=== PATIENT | female | born 1985 | race Two or more races ===

== ENCOUNTER 2017-03-09 13:30 | Emergency (ER) | payer OTHER ==
[2017-03-09 13:35] VITALS: BP 122/82; PULSE 105; TEMP 97.4; BMI 31.6
[2017-03-09] MEDS ORDERED: SODIUM CHLORIDE 1,000 ML IV STA (14:53)
[2017-03-09] MEDS ORDERED: ONDANSETRON 4 MG/2 ML VIAL IVPUSH ONE (14:53)
[2017-03-09] MEDS ORDERED: KETOROLAC TROMETHAMINE 30 MG/1 ML VIAL IVPUSH ONE (14:53)
[2017-03-09 14:57] LABS: URINE APPEARANCE SLCLOUDY; URINE BILIRUBIN NEGATIVE (NEGATIVE); URINE BLOOD NEGATIVE (NEGATIVE); URINE COLOR LTYELLOW; URINE GLUCOSE (UA) NEGATIVE (NEGATIVE); URINE KETONE NEGATIVE (NEGATIVE); URINE NITRITE NEGATIVE (NEGATIVE); URINE PROTEIN NEGATIVE (NEGATIVE); URINE UROBILINOGEN NEGATIVE E.U./dl (0.2-1.0)
[2017-03-09 14:58] LABS: URINE LEUK ESTERASE 3+ (NEGATIVE)
[2017-03-09] MEDS ORDERED: ONDANSETRON 4 MG/2 ML VIAL ONE (15:13)
[2017-03-09] MEDS ORDERED: KETOROLAC TROMETHAMINE 30 MG/1 ML VIAL ONE (15:13)
[2017-03-09 15:27] LABS: BASOPHIL 0.6 % (0-2.0); EOSINOPHIL 1.5 % (0-4.5); MCH 25.9 pg (25.7-33.7); MCHC 32.7 g/dl (32.0-36.0); MEAN CELL VOLUME 79.3 fl (80-96); MEAN PLT VOLUME 7.5 fl (7.5-11.1); NEUTROPHILS 58.1 % (42.8-82.8); PLATELET COUNT 386 K/MM3 (134-434); RDW 15.2 % (11.6-15.6); WHITE BLOOD COUNT 10.7 K/mm3 (4.0-10.0)
[2017-03-09 15:49] LABS: URINE RBC <1 /hpf (0-3); URINE WBC 10 /hpf (3-5)
[2017-03-09 15:53] LABS: ALBUMIN 3.3 g/dl (3.4-5.0); ANION GAP 8 (8-16); BILIRUBIN,TOTAL 0.1 mg/dL (0.2-1.0); CALCIUM 9.1 mg/dL (8.5-10.1); CO2 25 mmol/L (21-32); CREATININE 0.7 mg/dL (0.55-1.02); GLUCOSE,RANDOM 85 mg/dL (74-106); SGPT/ALT 27 U/L (12-78); TOT PROT 6.9 g/dl (6.4-8.2)
[2017-03-09 15:54] LABS: ALK PHOS 97 U/L (45-117)
[2017-03-09 15:58] LABS: MAGNESIUM 1.9 mg/dL (1.8-2.4); SGOT/AST 25 U/L (15-37)
--- NOTE | 2017-03-09 16:15 | PDOC ---
History of Present Illness - General Chief Complaint: Pain Stated Complaint: FLANK PAIN Time Seen by Provider: 03/09/17 14:28 History Source: Patient Exam Limitations: No Limitations - History of Present Illness Travel History: No Initial Comments: 03/09/17 15:13 31-year-old female with no past medical history presents to the ED with complaints of nausea with vomiting and intermittent diarrhea for the past 3 days associated with urinary frequency along with suprapubic pressure radiating to her right flank area. Patient denies history of kidney stones, kidney infection, gallbladder disease, recent travel, or recent change in diet. Patient denies drug or alcohol usage. Timing/Duration: reports: changing over time Quality: reports: mild, cramping Abdominal Pain Onset Location: reports: suprapubic Pain Radiation: reports: flank (rt) Activities at Onset: reports: none Aggravating Factors: improves with: None Alleviating Factors: improves with: None Past History - Past Medical History Allergies/Adverse Reactions: Allergies Allergy/AdvReac Type Severity Reaction Status Date / Time No Known Allergies Allergy Verified 03/09/17 13:32 Home Medications: Ambulatory Orders Ranitidine HCl [Zantac 75] 75 mg PO DAILY #14 tablet 06/07/15 Other medical history: NONE - Reproductive History LMP Normal: Yes Is Patient Now?: No - Psycho/Social/Smoking Cessation Hx Anxiety: No Suicidal Ideation: No Smoking History: Never smoked Have you smoked in the past 12 months: No Number of Cigarettes Smoked Daily: 2 Information on smoking cessation initiated: No 'Breaking Loose' booklet given: 03/08/17 Hx Alcohol Use: No Drug/Substance Use Hx: No Substance Use Type: None Patient Lives Alone: No Review of Systems - Review of Systems Able to Perform ROS?: Yes Constitutional: No: Symptoms Reported HEENTM: No: Symptoms Reported Respiratory: No: Symptoms reported Cardiac (ROS): No: Symptoms Reported ABD/GI: Yes: Diarrhea, Nausea, Poor Appetite, Poor Fluid Intake, Vomiting, Abdominal cramping : Yes: Dysuria, Frequency, Flank Pain Musculoskeletal: No: Symptoms Reported Integumentary: No: Symptoms Reported Neurological: No: Symptoms reported *Physical Exam - Vital Signs Last Vital Signs Temp Pulse Resp BP Pulse Ox 97.4 F L 105 H 18 122/82 100 03/09/17 13:32 03/09/17 13:32 03/09/17 13:32 03/09/17 13:32 03/09/17 13:32 - Physical Exam General Appearance: Yes: Nourished, Appropriately Dressed. No: Apparent Distress HEENT: negative: Pale Conjunctivae Neck: positive: Supple Respiratory/Chest: positive: Lungs Clear, Normal Breath Sounds. negative: Respiratory Distress, Accessory Muscle Use Cardiovascular: positive: Regular Rhythm, Tachycardia. negative: Murmur Gastrointestinal/Abdominal: positive: Soft, Tenderness (suprapubic, right suprapbic , and rt flank) Musculoskeletal: positive: CVA Tenderness (R) (mild) Extremity: positive: Normal Capillary Refill. negative: Pedal Edema Integumentary: positive: Normal Color, Warm, Moist Neurologic: positive: Motor Strength 5/5 (ambulatory) ED Treatment Course - LABORATORY CBC & Chemistry Diagram: 03/09/17 15:15 03/09/17 15:15 - ADDITIONAL ORDERS Additional order review: Laboratory Results 03/09/17 03/09/17 15:15 14:42 Sodium 141 Potassium 4.3 Chloride 108 H Carbon Dioxide 25 Anion Gap 8 BUN 12 D Creatinine 0.7 Creat Clearance w eGFR > 60 Random Glucose 85 Calcium 9.1 Magnesium 1.9 Total Bilirubin 0.1 L D AST 25 D ALT 27 Alkaline Phosphatase 97 Total Protein 6.9 Albumin 3.3 L Lipase 157 Urine Color Ltyellow Urine Appearance Slcloudy Urine pH 6.0 Urine Protein Negative Urine Glucose (UA) Negative Urine Ketones Negative Urine Blood Negative Urine Nitrite Negative Urine Bilirubin Negative Urine Urobilinogen Negative Ur Leukocyte Esterase 3+ H D Urine RBC <1 Urine WBC 10 Ur Epithelial Cells Moderate Urine HCG, Qual Negative 03/09/17 15:15 RBC 4.86 MCV 79.3 L MCHC 32.7 RDW 15.2 MPV 7.5 Neutrophils % 58.1 Lymphocytes % 33.8 Monocytes % 6.0 Eosinophils % 1.5 Basophils % 0.6 - Medications Given in the ED: ED Medications Discontinued Medications Generic Name Dose Route Start Last Admin Trade Name Freq PRN Reason Stop Dose Admin Ketorolac Tromethamine 30 mg 03/09/17 14:53 03/09/17 15:16 Toradol Injection - IVPUSH 03/09/17 14:54 30 mg ONCE ONE Administration Ondansetron HCl 4 mg 03/09/17 14:53 03/09/17 15:16 Zofran Injection IVPUSH 03/09/17 14:54 4 mg ONCE ONE Administration Medical Decision Making - Medical Decision Making 03/09/17 15:16 Patient here with complaints of nausea vomiting diarrhea suprapubic cramping associated with right flank pain and urinary frequency. Patient exam had suprapubic right flank and mild right CVA tenderness. Patient concerning for pyelonephritis versus renal colic patient ordered for labs including lipase, urinalysis urine , IV Toradol, Zofran, IV fluids and will reassess shortly 03/09/17 16:19 Laboratory Tests 03/09/17 03/09/17 03/09/17 14:42 15:15 15:15 WBC 10.7 H Hgb 12.6 Hct 38.6 Plt Count 386 Neutrophils % 58.1 Sodium 141 Potassium 4.3 Chloride 108 H Carbon Dioxide 25 Anion Gap 8 BUN 12 D Creatinine 0.7 Creat Clearance w eGFR > 60 Random Glucose 85 Calcium 9.1 Magnesium 1.9 Total Bilirubin 0.1 L D AST 25 D ALT 27 Alkaline Phosphatase 97 Albumin 3.3 L Lipase 157 Urine Nitrite Negative Ur Leukocyte Esterase 3+ H D Urine WBC 10 Urine HCG, Qual Negative Patient states feeling better. Patient ordered for treatment of urinary tract infection and clinical indication of pyelonephritis. Patient also ordered for Zofran when necessary *DC/Admit/Observation/Transfer Diagnosis at time of Disposition: Pyelonephritis - Discharge Dispostion Disposition: HOME Condition at time of disposition: Improved - Referrals Referrals: Chyna Raya MD [Primary Care Provider] - - Patient Instructions Printed Discharge Instructions: DI for Kidney Infection Additional Instructions: Please take antibiotics until completed. May take Zofran as needed for nausea. Return to ED if symptoms worsen. Otherwise healthy primary care physician.
== END 2017-03-09 17:01 | disposition home or self-care (01) ==
LOC: JER 13:30
PROC: 3E0333Z Introduction of Anti-inflammatory into Peripheral Vein, Percutaneous Approach (ICD-10-PCS; principal; 2017-03-09)
PROC: 3E033GC Introduction of Other Therapeutic Substance into Peripheral Vein, Percutaneous Approach (ICD-10-PCS; 2017-03-09)
PROC: 3E0337Z Introduction of Electrolytic and Water Balance Substance into Peripheral Vein, Percutaneous Approach (ICD-10-PCS; 2017-03-09)
DX: N12 Tubulo-interstitial nephritis, not specified as acute or chronic (principal)
CPT/HCPCS: 36415; 80053; 81003; 81015; 83690; 83735; 84703; 85025; 87086; 99282-25